=== PATIENT | male | born 2000 | race African-American/Black ===

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

== ENCOUNTER 2020-04-23 09:06 | Emergency (ER) | payer SELFPAY ==
[~2020-04-23] VITALS: Ht 182.9 cm; Wt 63.6 kg
[~2020-04-23 09:06] MED LIST: ALBU2.5V8 INH; PRED50TA PO
[2020-04-23 09:46] VITALS: BP 111/65
[2020-04-23] MEDS: FAMOTIDINE 20 MG TABLET. PO ONE (09:48)
[2020-04-23] MEDS: DICYCLOMINE HCL 10 MG CAPSULE PO ONE (09:48)
[2020-04-23] MEDS: ONDANSETRON ODT 4 MG TAB.RAPDIS. PO ONE (09:48)
--- NOTE | 2020-04-23 09:52 | PHYS DOC ---
Past Medical History Past Medical History: Asthma Past Surgical History: No Surgical History Smoking Status: Never Smoker Alcohol Use: None Drug Use: Marijuana General Adult EDM: Chief Complaint: ABDOMINAL PAIN HPI: HPI: The history was obtained from the patient. Patient is a 19-year-old male with PMH asthma and daily marijuana usage who presents with a chief complaint of abdominal discomfort. Patient states he is at constant abdominal discomfort over the past week. He states it is not necessarily a pain but a full feeling. He denies any vomiting. He does note some very mild nausea. He states that he has not tried eating because he has not been hungry or had an appetite. He does note that he smokes marijuana daily. He denies any unexplained weight loss. Denies any urinary symptoms. He states he has had 2-3 episodes of loose stool daily over the past 3 days. Denies any blood in the stool. Denies any fevers. Denies history of abdominal surgeries. Not tried any medicine at home to help. States pain is somewhat constant. Denies any exacerbating or alleviating factors. No other complaints. Review of Systems: Review of Systems: Constitutional: Denies fever or chills. [] Eyes: Denies change in visual acuity. [] HENT: Denies nasal congestion or sore throat. [] Respiratory: Denies cough or shortness of breath. [] Cardiovascular: Denies chest pain or edema. [] GI: Positive for abdominal pain and nausea and loose stool : Denies dysuria. [] Musculoskeletal: Denies back pain or joint pain. [] Integument: Denies rash. [] Neurologic: Denies headache, focal weakness or sensory changes. [] Endocrine: Denies polyuria or polydipsia. [] Lymphatic: Denies swollen glands. [] Psychiatric: Denies depression or anxiety. [] Heart Score: Risk Factors: Risk Factors: DM, Current or recent (<one month) smoker, HTN, HLP, family history of CAD, obesity. Risk Scores: Score 0 - 3: 2.5% MACE over next 6 weeks - Discharge Home Score 4 - 6: 20.3% MACE over next 6 weeks - Admit for Clinical Observation Score 7 - 10: 72.7% MACE over next 6 weeks - Early Invasive Strategies Current Medications: Current Medications Medications (Trade) Dose Ordered Sig/Erasmo Start Time Stop Time Status Last Admin Dose Admin Dicyclomine HCl (Bentyl) 20 mg 1X ONCE 04/23/20 09:45 04/23/20 09:46 DC 04/23/20 09:48 20 MG Famotidine (Pepcid) 20 mg 1X ONCE 04/23/20 09:45 04/23/20 09:46 DC 04/23/20 09:48 20 MG Ondansetron HCl (Zofran Odt) 4 mg 1X ONCE 04/23/20 09:45 04/23/20 09:46 DC 04/23/20 09:48 4 MG Allergies: Allergies: Allergies Coded Allergies Type Severity Reaction Last Updated Verified No Known Drug Allergies 06/11/15 No Physical Exam: PE: Constitutional: Well developed, well nourished, no acute distress, non-toxic appearance. [] HENT: Normocephalic, atraumatic, bilateral external ears normal, oropharynx moist, no oral exudates, nose normal. [] Eyes: PERRLA, EOMI, conjunctiva normal, no discharge. [] Neck: Normal range of motion, no tenderness, supple, no stridor. [] Cardiovascular:Heart rate regular rhythm, no murmur [] Lungs & Thorax: Bilateral breath sounds clear to auscultation [] Abdomen: Soft, nontender, nonacute abdomen. No involuntary guarding or rigidity noted. No acute peritonitis. : Circumcised. Testicles without swelling, tenderness, or masses. No penile discharge visualized. No skin changes in the region. Normal exam. Skin: Warm, dry, no erythema, no rash. [] Back: No tenderness, no CVA tenderness. [] Extremities: No tenderness, no cyanosis, no clubbing, ROM intact, no edema. [] Neurologic: Alert and oriented X 3, normal motor function, normal sensory function, no focal deficits noted. [] Psychologic: Affect normal, judgement normal, mood normal. [] Current Patient Data: Vital Signs: Vital Signs Date Time Temp Pulse Resp B/P (MAP) Pulse Ox O2 Delivery O2 Flow Rate FiO2 04/23/20 09:19 96.9 69 18 113/68 (83) 100 Room Air 96.9 EKG: EKG: [] Radiology/Procedures: Radiology/Procedures: [] Course & Med Decision Making: Course & Med Decision Making Pertinent Labs and Imaging studies reviewed. (See chart for details) Patient is a benign-appearing 19-year-old male who presents with chief complaint of abdominal aching and nausea. Initial vital signs normal. Physical exam grossly normal. Abdomen without any reproducible tenderness. Given the benign nature of the patient's appearance conservative measures were trialed. He was given oral Bentyl, Zofran, Pepcid. On repeat examination he states that he fe els significantly better. He has tolerated p.o. He is requesting a work note. His vital signs remained stable. His abdominal exam remains unchanged. He is appropriate for discharge home. He will be discharged home with a short course of Pepcid. Marijuana cessation counseling was given. Return precautions discussed and understood. Instructed to follow-up with a primary care physician in the next week. Stable for discharge. Joseph Disclaimer: Joseph Disclaimer: This electronic medical record was generated, in whole or in part, using a voice recognition dictation system. Departure Departure Impression: Primary Impression: Nausea Additional Impression: Marijuana abuse Disposition: HOME, SELF-CARE Condition: GOOD Referrals: NO PCP (PCP) Additional Instructions: [facility] [address] [place] [address] [facility] [address] [place] [address] [facility] [address] [facility] [place] [address] [facility] [address] [place] [address] [facility] [address] [place] [address] [facility] [address] [place] [address] [facility] [address] [place] [address] [facility] [address] [place] [address] [facility] [address] [place] [address] [facility] [address] [place] [address] Scripts Famotidine (PEPCID) 20 Mg Tablet 20 MG PO HS, #14 TAB Prov: KARLIE JUÁREZ DO 04/23/20 Ondansetron Hcl (ZOFRAN) 4 Mg Tablet 4 MG PO PRN TID PRN for NAUSEA, #9 nausea/vomiting Prov: KARLIE JUÁREZ DO 04/23/20 Justicifation of Admission Dx: Justifications for Admission: Justification of Admission Dx: N/A KARLIE JUÁREZ DO Apr 23, 2020 09:52
[2020-04-23] MEDS ORDERED: FAMO-63 PO (10:03)
[2020-04-23] MEDS ORDERED: ONDA4TAB7 PO (10:03)
== END 2020-04-23 10:11 | disposition home or self-care (01) ==
LOC: ER 09:06
DX: R11.0 Nausea (principal); F12.90 Cannabis use, unspecified, uncomplicated; R10.9 Unspecified abdominal pain; R19.7 Diarrhea, unspecified; J45.909 Unspecified asthma, uncomplicated
CPT/HCPCS: 99284